=== PATIENT | male | born 1955 | race Asian ===

== ENCOUNTER 2019-07-08 09:18 | Outpatient (CLI) | payer SELFPAY | END 2019-07-08 09:19 | disposition short-term general hospital (02) | LOC: EMS 09:18 | PROVIDERS: ATTEND Surgery | DX: R07.89 Other chest pain (principal) | CPT/HCPCS: A0425; A0427 ==

== ENCOUNTER 2024-05-20 15:56 | Outpatient (CLI) | payer MEDICARE | END 2024-05-20 23:59 | disposition critical access hospital (66) | LOC: EMS 15:56 | DX: R07.89 Other chest pain (principal); R61 Generalized hyperhidrosis; Z79.02 Long term (current) use of antithrombotics/antiplatelets | CPT/HCPCS: A0425; A0427 ==

== ENCOUNTER 2024-05-20 16:09 | Emergency (ER) | payer MEDICARE, OTHER ==
[2024-05-20 16:44] LABS: BASOPHILS % (AUTO) 0.3 %; EOSINOPHILS # (AUTO) 0.1 10^3/uL (0.0-0.7); EOSINOPHILS % (AUTO) 1.5 %; HCT - HEMATOCRIT 42.2 % (42.0-52.0); HGB - HEMOGLOBIN 14.1 g/dL (14.0-18.0); LYMPHOCYTES # (AUTO) 2.2 10^3/uL (1.5-3.5); LYMPHOCYTES % (AUTO) 23.4 %; MEAN CORPUSCULAR HEMOGLOBIN 30.9 pg (27.0-31.0); MEAN CORPUSCULAR HGB CONC 33.4 g/dL (32.0-36.0); MEAN CORPUSCULAR VOLUME 92.5 fL (80.0-94.0); MEAN PLATELET VOLUME 9.9 fL (7.4-11.4); MONOCYTES # (AUTO) 1.2 10^3/uL (0.0-1.0); MONOCYTES % (AUTO) 12.5 %; NEUTROPHILS # (AUTO) 5.7 10^3/uL (1.5-6.6); NEUTROPHILS % (AUTO) 61.8 %; PLT - PLATELET COUNT 178 10^3/uL (130-450); RED BLOOD COUNT 4.56 10^6/uL (4.70-6.10); RED CELL DISTRIBUTION WIDTH 12.4 % (12.0-15.0); WHITE BLOOD COUNT 9.3 x10^3/uL (4.8-10.8)
--- NOTE | 2024-05-20 16:57 | ED Physician Documentation ---
History of Present Illness - Stated complaint Stated Complaint: CP - Chief complaint Chief Complaint: Cardiac - History obtained from History obtained from: Patient - Additonal information Additional information: Patient is a 68-year-old male presenting to the emergency department with chest pain that started around 330. Patient describes as pain to his anterior chest radiating to his back. He denies any shortness of breath with his symptoms. He notes he was getting into his truck and driving with symptoms started he turned around and called EMS after symptoms did not relieve themselves. Patient is on clopidogrel metoprolol and atorvastatin for past medical history of [place] back in 2019. He denies having any symptoms since then. He has been compliant with his medications and did take his medications this morning. Patient notes he was feeling fine this morning prior to symptom onset. He notes he recently did get over COVID over the last few days. He denies any cough, fevers or persistent congestion today. PD PAST MEDICAL HISTORY - Past Medical History Past Medical History: No - Past Surgical History Past Surgical History: No - Allergies Allergies/Adverse Reactions: Allergies Allergy/AdvReac Type Severity Reaction Status Date / Time No Known Drug Allergies Allergy Verified 05/20/24 16:21 - Social History Does the pt smoke?: No Smoking Status: Never smoker Does the pt drink ETOH?: No Does the pt have substance abuse?: No - Immunizations Immunizations are current?: Yes - POLST Patient has POLST: No PD ED PE NORMAL - Vitals Vital signs reviewed: Yes - General General: Alert and oriented X 3 - HEENT HEENT: Atraumatic - Neck Neck: Supple, no meningeal sign - Cardiac Cardiac: RRR, No murmur, No gallop, No rub, Strong equal pulses, Other (Pulses equal and intact in upper and lower extremities. 2+ on examination) - Respiratory Respiratory: No respiratory distress - Abdomen Abdomen: Normal bowel sounds, Soft, Non tender, Non distended - Derm Derm: Normal color, No rash - Extremities Extremities: No deformity, No edema - Neuro Neuro: Alert and oriented X 3 Eye Opening: Spontaneous Motor: Obeys Commands Verbal: Oriented GCS Score: 15 Results - Vitals Vitals: Vital Signs - 24 hr 05/20/24 05/20/24 05/20/24 16:15 19:42 21:00 Temperature 37.0 C Heart Rate 60 62 62 Respiratory 20 16 16 Rate Blood Pressure 164/86 H 154/65 H 144/78 H O2 Saturation 96 96 97 Oxygen O2 Source Room air - EKG (time done) 1611 EKG releavant findings:: EKG personally interpreted by author of this note. Relevant findings are: Rate: Rate (enter#), Laci, Tachy, Other Rhythm: NSR [place]: Normal Intervals: Normal NV QRS: Normal Ischemia: Normal ST segments Compare to prior EKG: Unchanged from prior EKG Computer interpretation: Agree with computer 1948 EKG releavant findings:: EKG personally interpreted by author of this note. Relevant findings are: Rate: Rate (enter#) Rhythm: NSR [place]: Normal QRS: Normal Ischemia: Normal ST segments Compare to prior EKG: Unchanged from prior EKG Computer interpretation: Agree with computer - Labs Labs: Laboratory Tests 05/20/24 05/20/24 05/20/24 16:38 16:38 18:32 WBC 9.3 RBC 4.56 L Hgb 14.1 Hct 42.2 MCV 92.5 MCH 30.9 MCHC 33.4 RDW 12.4 Plt Count 178 MPV 9.9 Neut # (Auto) 5.7 Lymph # (Auto) 2.2 [place] # (Auto) 1.2 H Eos # (Auto) 0.1 Baso # (Auto) 0.0 Absolute Nucleated RBC 0.00 Nucleated RBC % 0.0 Sodium 139 Potassium 3.8 Chloride 109 Carbon Dioxide 24 Anion Gap 6.0 BUN 28 H Creatinine 0.9 Estimated GFR (MDRD) 84 L Glucose 130 H Calcium 8.4 L Total Bilirubin 0.4 AST 34 ALT 42 Alkaline Phosphatase 65 Troponin I High Sens 130.3 H* 1171.9 H* Total Protein 6.1 L Albumin 3.8 Globulin 2.3 Albumin/Globulin Ratio 1.7 Lipase 19 - Rads (name of study) Chest X-ray Relevant Findings:: EMP independent interpretation of test PD Medical Decision Making - ED course Complexity details: reviewed old records, reviewed results, re-evaluated patient ED course: Patient is a 60-year-old male with anterior chest pain that started shortly prior to arrival. Patient notes symptoms came on suddenly while getting into a truck earlier today. He denies any shortness of breath associate with symptoms. Describes pain as anterior chest tightness to anterior and radiating to posterior back. He notes symptoms came on suddenly. He received aspirin 325, nitroglycerin and fluids and EMS truck but symptoms of pain still persist. Patient has history of coronary artery disease is on metoprolol, and plavix at home. Patient's troponin here in emergency department On arrival is 130.[address] elevation patient continues to have pain he was given topical nitroglycerin with mild improvement in symptoms. Patient given a dose of morphine here in the emergency department for persistent pain here. Chest x-ray shows no acute cardiopulmonary findings. 1830: Repeat EKG here in emergency department shows troponin elevation to one 1171.9. Patient started on Lovenox as low suspicion for any transfer tonight for intervention. Patient notes pain has slightly improved to 5 out of 10. Will give small dose of Dilaudid to help with pain control. Pending cardiology consult at this time to transfer patient for cardiac cath as patient requires further intervention at this time.Patient understands and is agreeable with this plan. Departure - Departure Disposition: 02 Transfer Acute Care Hosp Clinical Impression: NSTEMI (non-ST elevated myocardial infarction) Condition: Stable Forms: PCP List
[2024-05-20 17:05] LABS: TROPONIN I HIGH SENSITIVITY 130.3 ng/L (2.3-19.7)
[2024-05-20 17:15] LABS: ALBUMIN 3.8 g/dL (3.2-5.5); ALBUMIN/GLOBULIN RATIO 1.7 (1.0-2.2); BILIRUBIN,TOTAL 0.4 mg/dL (0.2-1.0); CALCIUM 8.4 mg/dL (8.5-10.3); CREATININE 0.9 mg/dL (0.6-1.3); POTASSIUM 3.8 mmol/L (3.5-4.5); TOTAL PROTEIN 6.1 g/dL (6.4-8.9)
--- NOTE | 2024-05-20 17:23 | XRAY Report ---
PROCEDURE: Chest 1V INDICATIONS: Chest pain TECHNIQUE: One view of the chest was acquired. COMPARISON: None. FINDINGS: Surgical changes and devices: None. Lungs and pleura: No pleural effusions or pneumothorax. Lungs are clear. Mediastinum: Mediastinal contours appear normal. Heart size is mildly enlarged. Bones and chest wall: No suspicious bony lesions. Overlying soft tissues appear unremarkable. IMPRESSION: No acute cardiopulmonary process. Reviewed by: Pilar Sen MD on 05/20/2024 5:22 PM PDT Approved by: Pilar Sen MD on 05/20/2024 5:22 PM PDT Station ID: [id number]
[2024-05-20] MEDS: NITROGLYCERIN 0.4 MG/HR PATCH TOP STA (17:40)
[2024-05-20] MEDS: ENOXAPARIN 100 MG/ML SYRINGE SUBQ ONE (18:43)
[2024-05-20] MEDS: MORPHINE 2 MG/ML CARPUJECT IVP STA (19:32)
[2024-05-20] MEDS: HYDROmorphone 1 MG/ML CARPUJECT IVP STA (20:40)
--- NOTE | 2024-05-20 22:46 | ED Physician Documentation ---
ED Addendum - Addendum Addendum: 05/20/24 22:46 No changes during my shift, his repeat EKG was done at 2213. Showed a heart rate of 58, sinus rhythm, no ischemic changes. Normal [place]. Normal ST segments. Troponin continues to be elevated. We are still looking for a bed for transfer. Patient is signed out to the oncoming emergency department physician. This document was made in part using voice recognition software. While efforts are made to proofread this document, sound alike and grammatical errors may occur. Of note the patient states that his prior [place] in 2019 was at [facility]. He states that he does not have any stents that the artery that was involved was "too small".
[2024-05-21] MEDS: ACETAMINOPHEN 325 MG TABLET PO STA (02:28)
[2024-05-21 08:07] LABS: BASOPHILS % (AUTO) 0.2 %; EOSINOPHILS # (AUTO) 0.1 10^3/uL (0.0-0.7); EOSINOPHILS % (AUTO) 0.7 %; HCT - HEMATOCRIT 43.2 % (42.0-52.0); HGB - HEMOGLOBIN 14.4 g/dL (14.0-18.0); LYMPHOCYTES # (AUTO) 1.5 10^3/uL (1.5-3.5); LYMPHOCYTES % (AUTO) 12.5 %; MEAN CORPUSCULAR HEMOGLOBIN 30.7 pg (27.0-31.0); MEAN CORPUSCULAR HGB CONC 33.3 g/dL (32.0-36.0); MEAN CORPUSCULAR VOLUME 92.1 fL (80.0-94.0); MEAN PLATELET VOLUME 10.2 fL (7.4-11.4); MONOCYTES # (AUTO) 1.3 10^3/uL (0.0-1.0); MONOCYTES % (AUTO) 10.5 %; NEUTROPHILS # (AUTO) 9.3 10^3/uL (1.5-6.6); NEUTROPHILS % (AUTO) 75.9 %; PLT - PLATELET COUNT 179 10^3/uL (130-450); RED BLOOD COUNT 4.69 10^6/uL (4.70-6.10); RED CELL DISTRIBUTION WIDTH 12.2 % (12.0-15.0); WHITE BLOOD COUNT 12.2 x10^3/uL (4.8-10.8)
[2024-05-21 08:22] LABS: ALBUMIN 3.8 g/dL (3.2-5.5); ALBUMIN/GLOBULIN RATIO 1.8 (1.0-2.2); BILIRUBIN,TOTAL 0.8 mg/dL (0.2-1.0); CALCIUM 8.4 mg/dL (8.5-10.3); CREATININE 0.8 mg/dL (0.6-1.3); MAGNESIUM 1.8 mg/dL (1.7-2.3); POTASSIUM 3.8 mmol/L (3.5-4.5); TOTAL PROTEIN 5.9 g/dL (6.4-8.9)
[2024-05-21 08:29] LABS: TROPONIN I HIGH SENSITIVITY 13419.7 ng/L (2.3-19.7)
[2024-05-21] MEDS: ATORVASTATIN 40 MG TABLET PO SCH (08:55)
[2024-05-21] MEDS: ACETAMINOPHEN 325 MG TABLET PO SCH (08:55)
[2024-05-21] MEDS: ASPIRIN EC 81 MG TABLET PO SCH (08:55)
[2024-05-21] MEDS: ENOXAPARIN 100 MG/ML SYRINGE SUBQ SCH (08:55)
[2024-05-21] MEDS: METOPROLOL TARTRATE 25 MG TABLET PO SCH (08:55)
[2024-05-21] MEDS ORDERED: NITROGLYCERIN 0.4 MG/HR PATCH TOP SCH (09:00)
--- NOTE | 2024-05-21 09:08 | ED Physician Documentation ---
ED Addendum - Addendum Addendum: 05/21/24 09:04 The patient has been doing well overnight. No chest pain episodes. He ambulated to the bathroom and back without any chest pain or dyspnea. Blood pressure has been in the normal range. Heart rate is been in the 60s with 56 being the lowest. Review of his home medications showed 25 mg Lopressor, atorvastatin 40 mg, Plavix daily. Here given the acute MO, he had been added Lovenox dosing last evening. I ordered it for twice daily 1 mg/kg. I ordered his usual medication of metoprolol, atorvastatin and added aspirin. Since he is on the Lovenox I held the clopidogrel. Actually reconsidering, I will actually continue with that as well. He has a Nitropatch in place. This was a new medication from last night and I will continue with that. At this point were awaiting outlying facilities for acceptance. I did recheck blood test this morning to ensure on his blood count and platelet count and they are okay. His white count is slightly elevated but I presume more inflammatory reaction. His renal function is still normal. Electrolytes are good. His tr oponin increased to 13,000, presuming still flush out of the acute injury. BNP is very low and his checks x-ray had been clear so he does not look to be in acute new heart failure. He and his states they did both have COVID just 2 weeks ago and have a feeling of some general malaise still. No fevers for the last week or more. The patient is stable at this time without symptoms. Awaiting acceptance at a larger facility for transfer. Diagnosis: 1. Chest pain episode 2. Acute non-STEMI MO
[2024-05-21] MEDS: CLOPIDOGREL 75 MG TABLET PO SCH (09:56)
[2024-05-21 17:07] VITALS: BP 136/88; O2SAT 100
== END 2024-05-21 17:05 | disposition short-term general hospital (02) ==
LOC: EDUNIT# → ED 16:09
DX: I21.4 Non-ST elevation (NSTEMI) myocardial infarction (principal); I25.2 Old myocardial infarction; Z79.899 Other long term (current) drug therapy; Z79.02 Long term (current) use of antithrombotics/antiplatelets; Z75.1 Person awaiting admission to adequate facility elsewhere
CPT/HCPCS: 36415; 71045; 80053; 83690; 83735; 83880; 84484; 85025; 93005; 96372; 96374; 96375; 99285; A9270; J1170; J1650

== ENCOUNTER 2024-05-21 17:03 | Outpatient (CLI) | payer MEDICARE | END 2024-05-21 23:59 | disposition short-term general hospital (02) | LOC: EMS 17:03 | PROVIDERS: ATTEND Emergency Medicine | DX: I21.4 Non-ST elevation (NSTEMI) myocardial infarction (principal) | CPT/HCPCS: A0425; A0428 ==